=== PATIENT | female | born 1995 | race Two or more races ===

== ENCOUNTER 2023-04-19 08:46 | Emergency (ER) | payer OTHER ==
[2023-04-19 09:09] VITALS: BP 121/72; PULSE 77; RESP 16; TEMP 98.2; BMI 21.9
== END 2023-04-19 11:03 | disposition home or self-care (01) ==
LOC: JER 08:46
DX: M54.6 Pain in thoracic spine (principal); M41.9 Scoliosis, unspecified; V49.50XA Passenger injured in collision with unspecified motor vehicles in traffic accident, initial encounter; Y92.481 Parking lot as the place of occurrence of the external cause
CPT/HCPCS: 72070-TC-FY; 99283-25